=== PATIENT | male | born 1955 | race Caucasian/White ===

== ENCOUNTER 2023-05-22 21:04 | Emergency (ER) | payer OTHER ==
[~2023-05-22] VITALS: Ht 167.6 cm; Wt 68.0 kg
[2023-05-22 21:05] VITALS: BP 137/78; PULSE 77; RESP 18; TEMP 98.3; O2SAT 99
[2023-05-22] MEDS ORDERED: [UNRECOGNIZED DRUG - CODE] NS (22:28)
[2023-05-22] MEDS ORDERED: SODI44SP20 NS (22:28)
[2023-05-22 23:50] VITALS: BP 132/73; PULSE 66; RESP 15; O2SAT 97
== END 2023-05-22 22:49 | disposition home or self-care (01) ==
LOC: MED 21:04
DX: R04.0 Epistaxis (principal); Z79.899 Other long term (current) drug therapy
CPT/HCPCS: 30901; 99284

== ENCOUNTER 2023-05-24 09:40 | Emergency (ER) | payer OTHER ==
[~2023-05-24] VITALS: Ht 167.6 cm; Wt 69.4 kg
[~2023-05-24 09:40] MED LIST: SODI44SP20 NS; [UNRECOGNIZED DRUG - CODE] NS
[2023-05-24 09:48] VITALS: BP 137/75; PULSE 74; RESP 18; TEMP 98.3; O2SAT 97
[2023-05-24 10:00] VITALS: O2SAT 99
[2023-05-24 10:05] VITALS: BP 137/79; PULSE 81; RESP 16; O2SAT 99
== END 2023-05-24 10:05 | disposition home or self-care (01) ==
LOC: MED 09:40
DX: R04.0 Epistaxis (principal); Z79.899 Other long term (current) drug therapy
CPT/HCPCS: 99282